=== PATIENT | female | born 1960 | race Two or more races ===

== ENCOUNTER 2021-01-30 15:08 | Emergency (ER) | payer OTHER ==
[~2021-01-30] VITALS: Ht 157.5 cm; Wt 79.4 kg
[2021-01-30] MEDS ORDERED: FORTAMET500 MG (15:31)
[2021-01-30] MEDS ORDERED: COZAAR25 MG (15:32)
[2021-01-30] MEDS ORDERED: CHILDREN'S ASPI81 MG (15:32)
[2021-01-30] MEDS ORDERED: ACIDOPHILUS1 EAC3 (15:32)
[2021-01-30] MEDS ORDERED: CRESTOR10 MG (15:32)
[2021-01-30] MEDS ORDERED: CYMBALTA20 MG (15:33)
[2021-01-30] MEDS ORDERED: CLONAZEPAM0.5 MG (15:33)
== END 2021-01-30 20:32 | disposition home or self-care (01) ==
LOC: ER 15:08
DX: S00.83XA Contusion of other part of head, initial encounter (principal); S10.83XA Contusion of other specified part of neck, initial encounter; S30.0XXA Contusion of lower back and pelvis, initial encounter; W18.39XA Other fall on same level, initial encounter; Y93.89 Activity, other specified; Y92.098 Other place in other non-institutional residence as the place of occurrence of the external cause; Y99.8 Other external cause status